=== PATIENT | male | born 1975 | race Caucasian/White ===

== ENCOUNTER 2025-02-28 23:00 | Emergency (ER) | payer MEDICAID ==
[~2025-02-28] VITALS: Ht 198.1 cm; Wt 97.7 kg
[2025-02-28 23:02] VITALS: BP 147/90; PULSE 109; RESP 18; TEMP 98.6; O2SAT 100
[2025-03-01] MEDS ORDERED: NEOM28.37 TOP (00:28)
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
[2025-03-01] MEDS: neomy sulf/bacitrac zn/polymixin b oint 28.4 gm tube TP ONE (00:43)
== END 2025-03-01 00:47 | disposition home or self-care (01) ==
LOC: ER 23:01
DX: L55.1 Sunburn of second degree (principal); Z43.3 Encounter for attention to colostomy
CPT/HCPCS: 99282; A4421